=== PATIENT | female | born 1975 | race Two or more races ===

== ENCOUNTER 2019-08-06 19:26 | Inpatient (IN) ==
[2019-08-06] MEDS ORDERED: ACETAMINOPHEN 325 MG TABLET PO PRN (22:23)
[2019-08-06] MEDS ORDERED: DEXTROSE 50% 25 GM/50 ML VIAL IV PRN (22:23)
[2019-08-06] MEDS ORDERED: ONDANSETRON 4 MG/2 ML VIAL IV PRN (22:23)
[2019-08-06] MEDS ORDERED: GLUCAGON 1 MG VIAL IM PRN (22:23)
[2019-08-06] MEDS ORDERED: hydrALAZINE 20 MG/1 ML VIAL IV PRN (22:27)
[2019-08-06] MEDS ORDERED: ALBUTEROL 1.25 MG/3 ML NEB RESP TX PRN (22:29)
[2019-08-06] MEDS ORDERED: LISINOPRIL 10 MG TABLET PO ONE (22:29)
[2019-08-07 03:53] LABS: Basophils % 0.5 % (0.0-0.8); Eosinophils # 0.5 10*3/uL (0.0-0.87); Eosinophils % 7.1 % (0.00-10.9); Hematocrit 39.9 VOL% (35.7-47.0); Hemoglobin 13.2 GM/DL (12.0-16.0); Immature Granulocytes % 0.3 %; Immature Granulocytes Absolute 0.02 #; Lymphocytes # 2.5 10*3/uL (1.4-4.0); Lymphocytes % 32.5 % (21.3-54.2); Mean Corpuscular HGB Conc 33.1 GM/DL (32-36); Mean Corpuscular Volume 86.2 FL (87-102); Mean Platelet Volume 8.9 FL (9.6-12.0); Monocytes % 6.1 % (1.7-12.7); Neutrophils % 53.5 % (38.7-73.9); Platelet Count 257 T/CUMM (130-400); Red Blood Count 4.63 MC/CUMM (3.8-5.5); Red Cell Distribution Width 12.2 % (9.3-17.3); White Blood Count 7.6 T/CUMM (4-12)
[2019-08-07 04:22] LABS: Calcium 8.5 MG/DL (8.5-10.1); Osmolality,Calculated 279.4 MOS/KG (273-304)
[2019-08-07] MEDS: POTASSIUM CHLORIDE 20 MEQ TABLET PO PRN ×4 (05:54→11:50)
[2019-08-07] MEDS: INSULIN LISPRO 100 UNIT/ML SUBCUT SCH ×4 (08:04→21:33)
[2019-08-07] MEDS: ENOXAPARIN 40 MG/0.4 ML SYRINGE SUBCUT SCH (09:10)
[2019-08-07] MEDS: PANTOPRAZOLE 40 MG TABLET PO SCH (09:11)
[2019-08-07] MEDS: LISINOPRIL 10 MG TABLET PO SCH (09:11)
[2019-08-07] MEDS: amLODIPine 5 MG TABLET PO SCH (09:12)
[2019-08-07 15:12] LABS: Risk Ratio 4.39; VLDL CHOLESTEROL 44.2 MG/DL
[2019-08-07 15:13] LABS: Troponin I 0.091 NG/ML (0.00-0.045)
[2019-08-07] MEDS: ASPIRIN EC 81 MG TABLET PO SCH (15:44)
[2019-08-07 17:11] LABS: Barbiturates Screen,Urine Negative (Negative); Benzodiazepines Screen,Urine Negative (Negative); Cannabinoid Screen,Urine Negative (Negative); Opiate Screen,Urine Negative (Negative); Phencyclidine Screen,Urine Negative (Negative)
[2019-08-08 04:38] LABS: Osmolality,Calculated 278.7 MOS/KG (273-304)
[2019-08-08 08:14] VITALS: BP 140/111
[2019-08-08] MEDS: INSULIN LISPRO 100 UNIT/ML SUBCUT SCH (08:53)
[2019-08-08] MEDS: LISINOPRIL 10 MG TABLET PO SCH (08:54)
[2019-08-08] MEDS: ENOXAPARIN 40 MG/0.4 ML SYRINGE SUBCUT SCH (08:54)
[2019-08-08] MEDS: PANTOPRAZOLE 40 MG TABLET PO SCH (08:55)
[2019-08-08] MEDS: amLODIPine 5 MG TABLET PO SCH (08:55)
[2019-08-08] MEDS: ASPIRIN EC 81 MG TABLET PO SCH (08:55)
== END 2019-08-08 09:58 | disposition home or self-care (01) | DRG 305 ==
LOC: N.TELES
PROVIDERS: ADMIT Internal Medicine; ATTEND Internal Medicine